=== PATIENT | male | born 1970 | race Caucasian/White ===

== ENCOUNTER 2022-10-22 22:55 | Inpatient (IN) | payer OTHER, SELFPAY ==
[2022-10-22 22:56] VITALS: BP 156/98; PULSE 102; RESP 18; TEMP 36.8; O2SAT 98; BMI 46.2
--- NOTE | 2022-10-22 23:11 | ED.VIS.GI ---
HPI HPI - GI History of Present Illness Chief Complaint: Flank Pain Narrative Narrative: 52-year-old male presenting with left flank pain. He started having this pain early this morning about 6 AM. It was sharp and radiated to the left flank. He states this went away after he took some Aleve. Has been taking Tylenol throughout the day. This pain came back is now 70-8/10. He admits to feeling sweaty as well when the pain comes. He has been vomiting which started this evening. No history of kidney stones. No constipation or diarrhea. No fever, chills. PFSH PFSH Medical History Diabetes Hypertension Non-smoker Home Medications dulaglutide 0.75 mg/0.5 mL subcutaneous pen injector (Trulicity) 0.75 mg subcut QWEEK 10/22/22 [History Last Taken Unknown] losartan 100 mg tablet 100 mg PO DAILY 10/22/22 [History Last Taken Unknown] metformin 500 mg tablet 1,000 mg PO BID 10/22/22 [History Last Taken Unknown] ondansetron 4 mg disintegrating tablet 4 mg PO Q8H PRN nausea and vomiting #14 tabs 10/23/22 [Rx Last Taken Unknown] oxycodone-acetaminophen 5 mg-325 mg tablet (Percocet) 1 tab PO Q6H PRN pain 3 days #12 tabs 10/23/22 [Rx Last Taken Unknown] sulfamethoxazole 800 mg-trimethoprim 160 mg tablet (Bactrim DS) 1 tab PO BID #24 tabs 10/23/22 [Rx Last Taken Unknown] Allergy/AdvReac Type Severity Reaction Status Date / Time No Known Allergies Allergy Verified 01/01/17 05:48 Surgical History History of cholecystectomy History of hip replacement Social History Smoking Status: Never smoker ROS ROS ED Constitutional Constitutional ED: Denies chills or sweats ENT ENT ED: Denies rhinorrhea or sore throat Cardiovascular Cardiovascular: Denies chest pain or palpitations Respiratory/Chest Respiratory/Chest: Denies cough or dyspnea Gastrointestinal Gastrointestinal: Reports abdominal pain, nausea and vomiting; Denies constipation, diarrhea or melena Genitourinary Genitourinary ED: Denies dysuria or hematuria Musculoskeletal Musculoskeletal: Reports back pain Integumentary Denies abscess or Abrasions Neurologic Neurologic: Denies headache(s) or paresthesias Psychiatric Psychiatric: Denies anxiety or depression EXAM Physical Exam Const Vital Signs: 10/22/22 22:56 10/22/22 22:56 10/22/22 23:04 Temperature 98.3 F 98.3 F Temperature Source Oral Oral Pulse Rate 102 H 102 H Respiratory Rate 18 18 Respiratory Effort Normal Respiratory Pattern Normal Blood Pressure 156/98 H 156/98 H Blood Pressure Mean 117 117 Pulse Ox 98 98 Oxygen Delivery Method Room Air Room Air MDM MDM MDM Narrative Medical decision making narrative: Patient medicated with Toradol and Zofran. Basic lab work will be obtained and a CT like study for kidney stone. Patient continued to have pain so he is given morphine 4 mg IV. This did help his pain significantly. CBC shows a leukocytosis of 13.6. Hemoglobin hematocrit are stable. Platelets are normal. Renal function and electrolytes are normal. Patient does have positive nitrites, 500 leukocyte esterase, repeated 100 WBCs with 2+ bacteria and no squamous epithelial cells. Patient was given a dose of Rocephin IV. Urine was sent for culture. CT of the abdomen pelvis shows a left UVJ stone with associated hydronephrosis on the left. Since patient is doing well I will start him on Bactrim, Zofran, Percocet for home. He was given follow-up with Dr. Thompson. Return precautions were discussed. Impression: 1. 7 mm left UVJ stone 2. Pyelonephritis 3. Nausea/Vomiting Lab Data Attestation: I reviewed the patient's lab results. Labs: Laboratory Results - last 24 hr 10/22/22 10/22/22 10/22/22 23:28 23:28 23:59 WBC 13.6 H RBC 5.19 Hgb 15.5 Hct 45.3 MCV 87.3 MCH 29.9 MCHC 34.2 RDW Std Deviation 39.7 RDW Coeff of Brandy 12.5 Plt Count 222 MPV 9.8 Immature Gran % (Auto) 2.300 H Neut % (Auto) 87.3 H Lymph % (Auto) 6.5 L [place] % (Auto) 3.0 Eos % (Auto) 0.4 Baso % (Auto) 0.5 Absolute Neuts (auto) 11.9 H Absolute Lymphs (auto) 0.88 Nucleated RBC % 0.2 Sodium 137 Potassium 4.1 Chloride 103 Carbon Dioxide 29.0 Anion Gap 5 BUN 20 H Creatinine 1.07 Estim Creat Clear Calc 82.59 Est GFR (MDRD) Af Amer 94 Est GFR (MDRD) Non-Af 78 BUN/Creatinine Ratio 18.7 Glucose 135 H Calcium 9.5 Urine Color Yellow Urine Clarity Sl. Cloudy Urine pH 7.0 Ur Specific [place] 1.015 Urine Protein 30 H Urine Glucose (UA) Normal Urine Ketones Negative Urine Occult Blood 250 H Urine Nitrite Positive H Urine Bilirubin Negative Urine Urobilinogen Normal Ur Leukocyte Esterase 500 H Urine RBC 0-5 SEEN Urine WBC 50-100 SEEN Ur Squamous Epith Cells 0 SEEN Urine Bacteria 2+ Urine Mucus 0 SEEN Radiography Diagnostic Testing: Clinical Impression(s) from Imaging Studies Abdomen/Pelvis CT 10/23/22 23:10 IMPRESSION: Mild left hydroureteronephrosis caused by an obstructing calculus at the left UVJ measuring 7 mm. Stranding about the left kidney can be postsurgical or can be seen with infection; correlate clinically. Electronically Signed: Robb Lucas MD at 0:49 EST , Discharge Plan Triage Chief Complaint: Flank Pain ED Provider: Jt Rodriguez Dx/Rx/DC Orders Instructions: ED Kidney Stone w/ Colic, ED Pyelonephritis, Male (Adult) Prescriptions: New oxycodone-acetaminophen [Percocet] 5-325 mg tablet 1 tab PO Q6H PRN (Reason: pain) 3 Days Qty: 12 0RF ondansetron 4 mg tablet,disintegrating 4 mg PO Q8H PRN (Reason: nausea and vomiting) Qty: 14 0RF sulfamethoxazole-trimethoprim [Bactrim DS] 800-160 mg tablet 1 tab PO BID Qty: 24 0RF No Action metformin 500 mg tablet 1,000 mg PO BID losartan 100 mg tablet 100 mg PO DAILY Label Comments: TAKE 1 TABLET BY MOUTH EVERY DAY Trulicity 0.75 mg/0.5 mL pen injector 0.75 mg SUBCUT QWEEK Primary Care Provider: Harinder Gomes Referrals: Bob Thompson MD [Med Staff - Active Staff] - As soon as possible Care Physician,No Primary [Non-Staff] - Disposition Disposition: Home, Self Care
[2022-10-22] MEDS: Ondansetron 4 MG/2 ML Vial IV (23:32)
[2022-10-22] MEDS: Ketorolac 15 MG/ML Vial IV (23:33)
[2022-10-22 23:42] LABS: Absolute Lymphocyte Count 0.88 X10^3/uL (0.83-4.51); Absolute Neutrophil Count 11.9 X10^3/uL (2.0-7.7); Basophil# 0.07 X10^3/uL; Basophil% 0.5 % (0-1); Eosinophil# 0.05 X10^3/uL; Eosinophils% 0.4 % (0-5); Hematocrit 45.3 % (40-54); Hemoglobin 15.5 g/dL (13.0-16.5); Lymphocyte # 0.88 X10^3/ul (0.83-4.51); Lymphocyte % 6.5 % (19-41); Mean Corp Hgb Conc 34.2 g/dL (32-36); Mean Corpuscular Hgb 29.9 pg (27.0-32.0); Mean Corpuscular Volume 87.3 fL (80-94); Mean Platelet Vol. 9.8 fl (6.2-12.0); Monocyte# 0.41 X10^3/uL; NRBC Flagged by Analyzer 0.2 % (0-5); Neutrophil # 11.85 X10^3/uL (2.7-7.7); Neutrophil % 87.3 % (47-70); Platelet Count 222 K/mm3 (150-450); RBC Distribution Width CV 12.5 % (11.6-14.6); RBC Distribution Width SD 39.7 fl (35.1-43.9); Red Blood Count 5.19 M/mm3 (4.6-6.2); White Blood Count 13.6 K/mm3 (4.4-11.0)
[2022-10-23] VITALS (47 sets, daily range): BP systolic 72–190; BP diastolic 36–176; PULSE 94–147; RESP 16–38; TEMP 36.8–40; O2SAT 92–99; BMI 46.2
[2022-10-23] LABS: Anion Gap 5 (5-15); BUN 20 mg/dL (7-18); BUN/Creat Ratio 18.7 RATIO (10-20); Calcium,Total 9.5 mg/dL (8.5-10.1); Chloride 103 mmol/L (98-107); Creatinine, Serum 1.07 mg/dL (0.70-1.30); EST Glomerular Filtration Rate 78 mL/min (>60); Est Glom Filt Rate - Afr Amer 94 mL/min (>60); Estimated Creatinine Clearance 82.59 ml/min; Glucose 135 mg/dL (74-106); Potassium 4.1 mmol/L (3.5-5.1); Sodium Level 137 mmol/L (136-145)
[2022-10-23 00:04] LABS: Mucous, Urine 0 SEEN /hpf (<or=2+); Squamous Epithelial Cells - UA 0 SEEN /hpf (0-5)
[2022-10-23 00:05] LABS: Color, Urine Yellow (Yellow); Glucose, Dipstick Normal (Normal); Ketone-Dipstick Negative (Negative); Leukocyte Esterase-Dipstick 500 /ul (Negative); Nitrite-Dipstick Positive (Negative); Occult Blood-Urine 250 /ul (Negative); Protein-Dipstick 30 mg/dl (Negative); Specific Gravity, Urine 1.015 (1.002-1.030); Urine Bilirubin Dipstick Negative (Negative); Urine Clarity Sl. Cloudy (Clear); Urine Urobilinogen Normal (Normal)
[2022-10-23 00:29] LABS: Bacteria 2+ /hpf (None Seen); Red Blood Cells-Urine 0-5 SEEN /hpf (0-5); White Blood Cells 50-100 SEEN /hpf (0-5)
[2022-10-23] MEDS: Morphine 4 MG/ML Syringe IV ×2 (01:37→02:39)
[2022-10-23] MEDS: Ceftriaxone 1 GM/50 ML BAG IV (01:38)
[2022-10-23] MEDS: oxyCODONE 5 MG Tablet PO (02:26)
--- NOTE | 2022-10-23 03:17 | HP.PCM.HOS_ITS ---
HPI - General General Date of Admission: 10/23/22 Date of Service: 10/23/22 Chief Complaint: left flank pain HPI Narrative RUBIA GRANGER, is a 52 M with a significant history of hypertension and diabetes type 2 who presents to the emergency department with excruciating left flank pain that started the morning of the day of presentation. His pain is episodic. His pain is sharp. The pain is nonradiating. He denies any aggravating or ameliorating factors to the pain. He denies fevers. He reports chills and rigors. At the emergency department he was treated with morphine and Toradol and patient was noted to be shivering thereafter. He could not be discharged home because he had excruciating pain. He reports nausea and vomiting. [facility] Medical History Diabetes Hypertension Non-smoker Home Medications dulaglutide 0.75 mg/0.5 mL subcutaneous pen injector (Trulicity) 0.75 mg subcut QWEEK 10/22/22 [History Last Taken Unknown] losartan 100 mg tablet 100 mg PO DAILY 10/22/22 [History Last Taken Unknown] metformin 500 mg tablet 1,000 mg PO BID 10/22/22 [History Last Taken Unknown] ondansetron 4 mg disintegrating tablet 4 mg PO Q8H PRN nausea and vomiting #14 tabs 10/23/22 [Rx Last Taken Unknown] oxycodone-acetaminophen 5 mg-325 mg tablet (Percocet) 1 tab PO Q6H PRN pain 3 days #12 tabs 10/23/22 [Rx Last Taken Unknown] sulfamethoxazole 800 mg-trimethoprim 160 mg tablet (Bactrim DS) 1 tab PO BID #24 tabs 10/23/22 [Rx Last Taken Unknown] Allergy/AdvReac Type Severity Reaction Status Date / Time No Known Allergies Allergy Verified 01/01/17 05:48 Family History Other Diabetes Hypertension Surgical History History of cholecystectomy History of hip replacement Social History (Updated 10/23/22 @ 03:[address] Kevin Sotelo MD) Smoking Status: Never smoker Smokeless tobacco user: chewing tobacco ROS ROS Narrative Pertinent positives and pertinent negatives as noted in HPI. All other systems were reviewed and are negative Vital Signs Vital Signs Vital Signs: 10/22/22 22:56 10/22/22 22:56 10/22/22 23:04 Temperature 98.3 F 98.3 F Temperature Source Oral Oral Pulse Rate 102 H 102 H Respiratory Rate 18 18 Respiratory Effort Normal Respiratory Pattern Normal Blood Pressure 156/98 H 156/98 H Blood Pressure Mean 117 117 Pulse Ox 98 98 Oxygen Delivery Method Room Air Room Air 10/23/22 02:42 Temperature Temperature Source Pulse Rate 126 H Respiratory Rate 38 H Respiratory Effort Respiratory Pattern Blood Pressure Blood Pressure Mean Pulse Ox 99 Oxygen Delivery Method Room Air Weight Weight: 142.02 kg Body Mass Index (BMI) 46.2 Physical Exam Narrative Physical exam: General: Well-nourished, well-developed. Head: Normocephalic, atraumatic, no tenderness Eyes: Vision is grossly intact. EOMI ENT, no trauma, moist mucous membranes, no rhinorrhea Neck: Nontender, No thyromegaly. CVS: Regular rate and rhythm. S1-S2 present. No murmur, gallop or rub. Respiratory : clear to auscultation bilaterally, chest wall nontender, no wheezing Abdomen: Soft, nontender, nondistended, normal bowel sounds, no masses : Deferred Back: Nontender, no CVA tenderness. Extremities: Nontender full range of motion, no trauma Skin: Normal color, no trauma, abrasions Neuro: Alert, oriented, cranial nerves II through XII grossly intact. Psychiatry: Normal mood. Normal affect. Not depressed. Not anxious. Results Lab / Micro Data Result Diagrams: 10/22/22 23:28 10/22/22 23:28 Labs: Laboratory Results - last 24 hr 10/22/22 23:28: WBC 13.6 H, RBC 5.19, Hgb 15.5, Hct 45.3, MCV 87.3, MCH 29.9, MCHC 34.2, RDW Std Deviation 39.7, RDW Coeff of Brandy 12.5, Plt Count 222, MPV 9.8, Immature Gran % (Auto) 2.300 H, Neut % (Auto) 87.3 H, Lymph % (Auto) 6.5 L, [place] % (Auto) 3.0, Eos % (Auto) 0.4, Baso % (Auto) 0.5, Absolute Neuts (auto) 11.9 H, Absolute Lymphs (auto) 0.88, Nucleated RBC % 0.2 10/22/22 23:28: Sodium 137, Potassium 4.1, Chloride 103, Carbon Dioxide 29.0, Anion Gap 5, BUN 20 H, Creatinine 1.07, Estim Creat Clear Calc 82.59, Est GFR (MDRD) Af Amer 94, Est GFR (MDRD) Non-Af 78, BUN/Creatinine Ratio 18.7, Glucose 135 H, Calcium 9.5 10/22/22 23:59: Urine Color Yellow, Urine Clarity Sl. Cloudy, Urine pH 7.0, Ur Specific [place] 1.015, Urine Protein 30 H, Urine Glucose (UA) Normal, Urine Ketones Negative, Urine Occult Blood 250 H, Urine Nitrite Positive H, Urine B ilirubin Negative, Urine Urobilinogen Normal, Ur Leukocyte Esterase 500 H, Urine RBC 0-5 SEEN, Urine WBC 50-100 SEEN, Ur Squamous Epith Cells 0 SEEN, Urine Bacteria 2+, Urine Mucus 0 SEEN Radiology Impression Abdomen/Pelvis CT 10/23/22 23:10 IMPRESSION: Mild left hydroureteronephrosis caused by an obstructing calculus at the left UVJ measuring 7 mm. Stranding about the left kidney can be postsurgical or can be seen with infection; correlate clinically. Electronically Signed: Robb Lucas MD at 0:49 EST , Assessment & Plan Assessment/Plan (1) Pyelonephritis: (2) Kidney stone: PLAN: Plan Acute pyelonephritis/mild left hydroureteronephrosis/kidney stone Radiologist abdomen and pelvis CT showed: Mild left hydroureteronephrosis caused by an obstructing calculus at the left UVJ measuring 7 mm. Stranding about the left kidney can be postsurgical or can be seen with infection. Actual image was visualized and independently interpreted and I agree with radiologist interpretation. Urinalysis showed urine protein of 30; urine nitrite positive; urine leukocyte esterase of 500; urine bacteria of 2+. CBC showed white count of 13,600; and with bandemia of 2.3%. Neutrophilia of 87.3% and lymphopenia of 6.5%. Ceftriaxone IV ordered. IV Zofran. Urology consult. Diabetes mellitus Patient with hyperglycemia on presentation Home metformin held. Accu-Chek with correction scale insulin ordered. Monitor Accu-Cheks Correction scale insulin ordered. Hypertension Blood pressure is not within goal Home losartan continued. Trend blood pressure and adjust blood pressure medications. DVT prophylaxis : SCDs ordered. Charges/Coding Visit Charges Inpatient E&M: 47091 Init Hosp L3
[2022-10-23] MEDS: Acetaminophen 500 MG Tablet 1000 MG PO (05:06)
[2022-10-23] MEDS: 0.9% Normal Saline 1,000 ML 999 ML IV (05:07)
[2022-10-23 07:30] LABS: Absolute Neutrophil Count 12.4 X10^3/uL (2.0-7.7); Basophil# 0.04 X10^3/uL; Basophil% 0.3 % (0-1); Eosinophil# 0.12 X10^3/uL; Eosinophils% 0.9 % (0-5); Hematocrit 44.2 % (40-54); Lymphocyte % 3.7 % (19-41); Mean Corp Hgb Conc 33.9 g/dL (32-36); Mean Corpuscular Hgb 29.8 pg (27.0-32.0); Mean Corpuscular Volume 87.7 fL (80-94); Mean Platelet Vol. 10.1 fl (6.2-12.0); Monocyte# 0.27 X10^3/uL; NRBC Flagged by Analyzer 0 % (0-5); Neutrophil # 12.42 X10^3/uL (2.7-7.7); Neutrophil % 91.6 % (47-70); POSITIVE DIFFERENTIAL YES; Platelet Count 162 K/mm3 (150-450); RBC Distribution Width CV 12.9 % (11.6-14.6); RBC Distribution Width SD 41.6 fl (35.1-43.9); Red Blood Count 5.04 M/mm3 (4.6-6.2); White Blood Count 13.6 K/mm3 (4.4-11.0)
[2022-10-23] MEDS: 0.9% Normal Saline 1,000 ML 75 ML IV (07:40)
[2022-10-23 07:47] LABS: Anion Gap 11 (5-15); BUN 28 mg/dL (7-18); BUN/Creat Ratio 13.7 RATIO (10-20); Calcium,Total 8.7 mg/dL (8.5-10.1); Chloride 104 mmol/L (98-107); Creatinine, Serum 2.05 mg/dL (0.70-1.30); EST Glomerular Filtration Rate 37 mL/min (>60); Est Glom Filt Rate - Afr Amer 44 mL/min (>60); Estimated Creatinine Clearance 43.11 ml/min; Glucose 160 mg/dL (74-106); Potassium 3.7 mmol/L (3.5-5.1); Sodium Level 136 mmol/L (136-145)
[2022-10-23 07:58] LABS: Differential Indicated SCAN CRITERIA MET
[2022-10-23 08:00] LABS: Bedside Glucose 138 mg/dL (74-106)
--- NOTE | 2022-10-23 08:04 | PCM.CONS.U ---
Assessment & Plan Assessment/Plan (1) Kidney stone: PLAN: left kidney stone, with fevers probably infected plan to place a stent (2) Pyelonephritis: HPI Consult Data Date of Consult: 10/23/22 HPI Narrative Reason for Consultation: kidney stone HPI Narrative: RUBIA GRANGER, is a 52 M who presents with fevers chills and a 7 mm stone in the left ureter. plan for Surgery today with a left stent placement. PFSH Medical History Diabetes Hypertension Non-smoker Home Medications dulaglutide 0.75 mg/0.5 mL subcutaneous pen injector (Trulicity) 0.75 mg subcut TU DIABETES 10/22/22 [History Last Taken Unknown] losartan 100 mg tablet 100 mg PO DAILY 10/22/22 [History Last Taken Unknown] metformin 500 mg tablet 1,000 mg PO BID 10/22/22 [History Last Taken Unknown] ondansetron 4 mg disintegrating tablet 4 mg PO Q8H PRN nausea and vomiting #14 tabs 10/23/22 [Rx Last Taken Unknown] oxycodone-acetaminophen 5 mg-325 mg tablet (Percocet) 1 tab PO Q6H PRN pain 3 days #12 tabs 10/23/22 [Rx Last Taken Unknown] sulfamethoxazole 800 mg-trimethoprim 160 mg tablet (Bactrim DS) 1 tab PO BID #24 tabs 10/23/22 [Rx Last Taken Unknown] Allergy/AdvReac Type Severity Reaction Status Date / Time No Known Allergies Allergy Verified 01/01/17 05:48 Family History Other Diabetes Hypertension Surgical History History of cholecystectomy History of hip replacement Social History Smoking Status: Never smoker Smokeless tobacco user: chewing tobacco ROS Constitutional Constitutional: Denies chills, fever(s) or malaise Eyes Eyes: Denies blurry vision or change in vision ENT HEENT: Reports none Cardiovascular Cardiovascular: Denies chest pain or palpitations Respiratory/Chest Respiratory/Chest: Denies cough or shortness of breath with exertion Gastrointestinal Gastrointestinal: Denies abdominal pain, constipation or diarrhea Musculoskeletal Musculoskeletal: Denies back pain, joint stiffness or joint swelling Integumentary Integumentary: Denies dry skin, jaundice, lesions or rash Neurologic Neurologic: Denies confusion, syncope or weakness Psychiatric Psychiatric: Reports none; Denies anxiety or depression Endocrine Endocrinology: Denies excessive sweating, fatigue or flushing Hematologic/Lymphatic Hematologic/Lymphatic: Denies anemia, easy bleeding or easy bruising Physical Exam Const alert and oriented x3 General Appearance: cooperative HEENT normocephalic, head/scalp atraumatic, EAC's normal and TM's normal bilaterally Eyes PERRL and EOMs intact bilaterally Pupil: sluggish Neck no lymphadenopathy, supple and no JVD General: trachea midline Lymph Lymphatic: no lymphadenopathy noted, lymphedema and lymphadenopathy Resp normal respiratory effort, normal air movement and clear to auscultation bilaterally Cardio regular rate, regular rhythm and peripheral pulses 2+ throughout GI soft to palpation, non-tender and non-distended Extremity normal capillary refill and no clubbing, cyanosis or edema General Extremity: no tenderness to palpation of joints or extremities Skin no rashes or lesions noted General Skin Exam: turgor normal Lesions: no lesions Rashes: no rashes Neuro CN's II-XII intact bilaterally Speech: speech normal Motor Exam: strength 5/5 throughout; Negative for general weakness Psych thought process normal, cooperative and affect normal Appearance: appropriate Lab / Micro Data Result Diagrams: 10/23/22 07:15 10/23/22 07:15 Labs: Laboratory Results - last 24 hr 10/22/22 23:28: WBC 13.6 H, RBC 5.19, Hgb 15.5, Hct 45.3, MCV 87.3, MCH 29.9, MCHC 34.2, RDW Std Deviation 39.7, RDW Coeff of Brandy 12.5, Plt Count 222, MPV 9.8, Immature Gran % (Auto) 2.300 H, Neut % (Auto) 87.3 H, Lymph % (Auto) 6.5 L, [place] % (Auto) 3.0, Eos % (Auto) 0.4, Baso % (Auto) 0.5, Absolute Neuts (auto) 11.9 H, Absolute Lymphs (auto) 0.88, Nucleated RBC % 0.2 10/22/22 23:28: Sodium 137, Potassium 4.1, Chloride 103, Carbon Dioxide 29.0, Anion Gap 5, BUN 20 H, Creatinine 1.07, Estim Creat Clear Calc 82.59, Est GFR (MDRD) Af Amer 94, Est GFR (MDRD) Non-Af 78, BUN/Creatinine Ratio 18.7, Glucose 135 H, Calcium 9.5 10/22/22 23:59: Urine Color Yellow, Urine Clarity Sl. Cloudy, Urine pH 7.0, Ur Specific [place] 1.015, Urine Protein 30 H, Urine Glucose (UA) Normal, Urine Ketones Negative, Urine Occult Blood 250 H, Urine Nitrite Positive H, Urine Bilirubin Negative, Urine Urobilinogen Normal, Ur Leukocyte Esterase 500 H, Urine RBC 0-5 SEEN, Urine WBC 50-100 SEEN, Ur Squamous Epith Cells 0 SEEN, Urine Bacteria 2+, Urine Mucus 0 SEEN 10/23/22 07:15: WBC 13.6 H, RBC 5.04, Hgb 15.0, Hct 44.2, MCV 87.7, MCH 29.8, MCHC 33.9, RDW Std Deviation 41.6, RDW Coeff of Brandy 12.9, Plt Count 162, MPV 10.1, Immature Gran % (Auto) 1.500 H, Neut % (Auto) 91.6 H, Lymph % (Auto) 3.7 L, [place] % (Auto) 2.0, Eos % (Auto) 0.9, Baso % (Auto) 0.3, Absolute Neuts (auto) 12.4 H, Absolute Lymphs (auto) 0.50 L, Nucleated RBC % 0 10/23/22 07:15: Sodium 136, Potassium 3.7, Chloride 104, Carbon Dioxide 21.0, Anion Gap 11, BUN 28 H, Creatinine 2.05 H, Estim Creat Clear Calc 43.11, Est GFR (MDRD) Af Amer 44 L, Est GFR (MDRD) Non-Af 37 L, BUN/Creatinine Ratio 13.7, Glucose 160 H, Calcium 8.7 10/23/22 07:38: POC Glucose 138 H Micro: Microbiology 10/23/22 05:00 Nasal Secretion SARS-CoV-2 & FLU Antigen (Rapid) - Final Radiology Impression Abdomen/Pelvis CT 10/23/22 23:10 IMPRESSION: Mild left hydroureteronephrosis caused by an obstructing calculus at the left UVJ measuring 7 mm. Stranding about the left kidney can be postsurgical or can be seen with infection; correlate clinically. Electronically Signed: Robb Lucas MD at 0:49 EST ,
[2022-10-23] MEDS: Lactated Ringers 1,000 ML 999 ML IV ×3 (11:03→14:44)
--- NOTE | 2022-10-23 12:21 | PCM.OPRPT ---
Report of Operation Date of Procedure: 10/23/22 Pre-Operative Diagnosis: Left obstructing kidney stone and sepsis Post-Operative Diagnosis: Same Surgery/Procedure Performed:: Cystoscopy and left stent placement Description of Surgical Findings:: Patient was taken back to the operating room after induction of general anesthesia, the patient was placed in dorsolithotomy position. The urethra and genitals were prepped and draped in usual sterile fashion. Using a 21 [place] rigid cystourethroscope the entire length of the urethra was normal then went into the bladder. Identified the trigone the left and right ureteral orifice. I then cannulated the Left ureteral orifice and advanced a wire up into the kidney. I then backloaded a 5 [place] open ended catheter over the wire and injected contrast to delineate the anatomy. After the retrograde was performed I then used fluoroscopic images and guidance to advanced a wire up into the kidney and over the 0.038 glidewire I advanced a 6 [place] by 26 cm double pigtail stent. I then pulled the 0.038 Glidewire off and the stent coiled in the kidney bladder good position. The bladder was then drained. We confirmed the position of the stent by fluoroscopy. Patient anesthetic was reversed and was taken back to the PACU in good condition. Surgeon: Bob Thompson Type of Anesthesia: MAC Drains: stent Admit VTE Documentation VTE Present on Admission: No VTE Mechan Device Prophylaxis: SCD's
[2022-10-23 13:21] LABS: Bedside Glucose 130 mg/dL (74-106)
--- NOTE | 2022-10-23 13:48 | SUR.PHASEI ---
PATIENT WOKE FROM ANESTHESIA, WANTING TO GET OUT TO BED, NOT COMBATIVE BUT AGITATED. DIAPHORETIC. HR 130-140s. to bedside. anesthieia and more staff called to bedside to assist with patient's strength. atican given per anesthesia. patient is now resting in bed, vss. at bedside. new iv started in right hand.
--- NOTE | 2022-10-23 14:47 | PCM.PN.BLA ---
Progress Note Called to PACU to see patient post cystoscopy with left stent placement who is tachycardic and hypotensive Patient is in sinus tach, MAP slightly less than 65 He has received about a liter bolus, second liter bolus ongoing He is febrile; urine cultures are pending We will stop losartan, ketorolac Switch to IV Zosyn for now Depending patient's response to fluid boluses, may need ICU versus PCU
[2022-10-23] MEDS: 0.9% Normal Saline 1,000 ML 100 ML IV (17:28)
[2022-10-23] MEDS: Acetaminophen 325 MG Tablet 650 MG PO (19:17)
[2022-10-23] MEDS: 0.9% Saline Lock 10 ML Syringe IV ×2 (19:18→22:07)
[2022-10-23 21:26] LABS: Bedside Glucose 174 mg/dL (74-106)
--- NOTE | 2022-10-23 23:10 | CT_ITS ---
EXAM: CT ABDOMEN AND PELVIS WITHOUT INTRAVENOUS CONTRAST CLINICAL INDICATION: Kidney Stone TECHNIQUE: Helically acquired images were obtained of the abdomen and pelvis without intravenous contrast. CTDIvol = ( 31.58 ) mGy, DLP = ( 1735.61 ) mGycm This CT exam was performed using one or more of the following dose reduction techniques: automated exposure control, adjustment of the mA and/or kV according to patient size, and/or use of iterative reconstruction technique. This report was created using [employer] report generation technology. COMPARISON: 01/01/2017 FINDINGS: LOWER THORAX: Unremarkable. Lung bases are clear. No cardiomegaly. No significant pericardial effusion. ABDOMEN: LIVER: Hepatic steatosis. GALLBLADDER AND BILE DUCTS: Unremarkable. No calcified gallstones. No gallbladder distention or wall edema. No intra- or extrahepatic biliary ductal dilation. PANCREAS: Unremarkable. No focal cystic mass. SPLEEN: Unremarkable. Normal size without focal cystic or solid mass. ADRENALS: Unremarkable. No nodules. KIDNEYS AND URETERS: Mild left hydroureteronephrosis caused by an obstructing calculus at the left UVJ measuring 7 mm. Normal renal size and position. STOMACH AND BOWEL: Distal colonic diverticulosis but no acute diverticulitis. No other inflammatory or obstructive changes otherwise. PELVIS: APPENDIX: Normal appendix. BLADDER: Unremarkable. REPRODUCTIVE: Calcifications of the prostate are nonspecific. ABDOMEN and PELVIS: INTRAPERITONEAL SPACE: No free air. No ascites or other fluid collection. BONES/JOINTS: Right hip arthroplasty with satisfactory alignment and no complications. No acute or healing fracture or malalignment. No suspicious lytic or sclerotic lesions of bone. SOFT TISSUES: Unremarkable. No discrete abdominal or pelvic wall hernia. VASCULATURE: Unremarkable. Abdominal aorta is non-dilated. LYMPH NODES: Unremarkable. No enlarged lymph nodes. CT/Abdomen/Pelvis without Cont IMPRESSION: Mild left hydroureteronephrosis caused by an obstructing calculus at the left UVJ measuring 7 mm. Stranding about the left kidney can be postsurgical or can be seen with infection; correlate clinically. Electronically Signed: Robb Lucas MD at 0:49 EST ,
[2022-10-24] VITALS (23 sets, daily range): BP systolic 89–146; BP diastolic 63–86; PULSE 83–100; RESP 17–33; TEMP 35.9–36.6; O2SAT 96–99
[2022-10-24 00:30] LABS: Bedside Glucose 140 mg/dL (74-106)
[2022-10-24] MEDS: 0.9% Normal Saline 1,000 ML 125 ML IV ×4 (00:42→22:29)
[2022-10-24 05:43] LABS: Hematocrit 39.7 % (40-54); Hemoglobin 13.3 g/dL (13.0-16.5); Mean Corp Hgb Conc 33.5 g/dL (32-36); Mean Corpuscular Hgb 29.8 pg (27.0-32.0); Mean Corpuscular Volume 88.8 fL (80-94); Mean Platelet Vol. 9.8 fl (6.2-12.0); NRBC Flagged by Analyzer 0 % (0-5); POSITIVE DIFFERENTIAL YES; POSITIVE MORPHOLOGY YES; Platelet Count 112 K/mm3 (150-450); RBC Distribution Width CV 13.6 % (11.6-14.6); RBC Distribution Width SD 44.2 fl (35.1-43.9); Red Blood Count 4.47 M/mm3 (4.6-6.2); White Blood Count 26.9 K/mm3 (4.4-11.0)
[2022-10-24 05:46] LABS: Differential Indicated SCAN CRITERIA MET
[2022-10-24 06:02] LABS: Scan Smear per Review Criteria MANUAL DIFF
[2022-10-24 06:05] LABS: Eosinophil 1 % (0-5); Lymphocyte 4 % (19-41); Metamyelocyte 14 % (0-1); Monocyte 7 % (0-10); Neutrophil-Band 11 % (0-5); Neutrophil-Segmented 63 % (47-70); Total Cells Counted 100 (MANUAL DIFF)
[2022-10-24 06:08] LABS: ALB/GLOB Ratio 0.7 RATIO (0.9-2.4); AST(SGOT) 72 U/L (15-37); Absolute Lymphocyte Count 1.08 X10^3/uL (0.83-4.51); Absolute Neutrophil Count 23.7 X10^3/uL (2.0-7.7); Alanine Aminotransfer ALT/SGPT 134 U/L (16-61); Albumin, Serum 2.6 g/dL (3.2-5.0); Alkaline Phosphatase 106 U/L (45-117); Anion Gap 8 (5-15); BUN 37 mg/dL (7-18); Calcium,Total 8.2 mg/dL (8.5-10.1); Chloride 107 mmol/L (98-107); Creatinine, Serum 1.61 mg/dL (0.70-1.30); EST Glomerular Filtration Rate 49 mL/min (>60); Est Glom Filt Rate - Afr Amer 59 mL/min (>60); Estimated Creatinine Clearance 54.89 ml/min; Globulin 3.5 g/dL (2.2-4.2); Glucose 122 mg/dL (74-106); Lymphocyte # 1.08 X10^3/ul (0.83-4.51); Neutrophil # 23.66 X10^3/uL (2.7-7.7); Potassium 3.4 mmol/L (3.5-5.1); Protein, Total 6.1 g/dL (6.4-8.2); Sodium Level 138 mmol/L (136-145)
[2022-10-24 06:10] LABS: Platelet Estimate SLT DEC (ADEQ); Red Cell Morphology NORM C+C NORMAL (NORM C&C)
[2022-10-24 06:25] LABS: Bedside Glucose 110 mg/dL (74-106)
[2022-10-24] MEDS: Acetaminophen 325 MG Tablet 650 MG PO ×2 (06:32→17:38)
--- NOTE | 2022-10-24 06:52 | CON.PCM.CC_ITS ---
Assessment & Plan Assessment/Plan (1) Pyelonephritis: (2) Acute kidney injury: PLAN: Plan RECOMMENDATIONS: 1. Continue antibiotics pending cultures 2. Increase activity as tolerated 3. Consider discontinuation of Copeland catheter 4. Hemodynamically stable on room air. Will sign off from a critical care perspective IMPRESSIONS: 1. Pyelonephritis/acute kidney injury secondary to hydronephrosis secondary to obstructive renal colliculi Patient with significant elevation of creatinine on presentation. Patient has not had any positive cultures, but clinical suspicion for gram-negative sepsis is appropriate. Patient has received antibiotics. Patient does have a significant leukocytosis, but this would be expected. Patient did not have any significant hypotension overnight. Would hold antihypertensives for 24 hours. Patient appears to have adequate pain control. 2. Diabetes mellitus type 2/hypertension/morbid obesity Complicates care, management, recovery and prognosis. We will need to watch blood sugars closely given acute process. Hold losartan given acute kidney injury for least 24 hours. HPI Consult Data Date of Consult: 10/24/22 HPI Narrative Reason for Consultation: Sepsis HPI Narrative: RUBIA GRANGER is a 52 M, with past medical history listed below, who presents to [facility] on 10/22/2022 secondary to acute onset of left-sided flank pain. Patient had reported onset earlier in the day and described it as sharp with radiation to the left flank. Patient had attempted to take Aleve and Tylenol through the day, but was still reporting pain levels of 7-8 out of 10. Patient did report diaphoresis and vomiting. Patient had no history of previous kidney stone. Patient had not reported any subjective fevers or chills. Patient does carry a diagnosis of diabetes, but states he is relatively controlled. In the ER, patient was afebrile, but tachycardic at 102 bpm. Patient was hypertensive but saturating well on room air. Laboratory work-up showed a white blood cell count of 13.6 with hemoglobin of 15.5 and a creatinine of 1.07. Urinalysis was suggestive of a urinary tract infection. CT of the abdomen and pelvis was obtained showing mild left hydronephrosis with an obstructing 7 mm stone and stranding. Patient was given IV Rocephin and evaluated by Dr. Thompson. Patient was taken to the OR and had a stent placed. Patient was placed on the floor for further evaluation. In PACU, patient started to have some soft pressures postoperatively. Given concerns for gram-negative sepsis, patient was admitted to the intensive care unit overnight for monitoring Since being in the intensive care unit, patient has done well. Patient is still reporting intermittent left flank pain, but states this is much improved. Patient states the pain is exacerbated by urination. Patient has had some mild hematuria. Patient is not reporting any nausea or vomiting. Patient does state that he feels well enough to go home. Review of systems otherwise negative from a constitutional, HEENT, respiratory, cardiovascular, GI, genitourinary, musculoskeletal, skin, neurologic, psychiatric and hematologic system unless stated above. PFSH Medical History Diabetes Hypertension Non-smoker Home Medications dulaglutide 0.75 mg/0.5 mL subcutaneous pen injector (Trulicity) 0.75 mg subcut TU DIABETES 10/22/22 [History Last Taken Unknown] losartan 100 mg tablet 100 mg PO DAILY 10/22/22 [History Last Taken Unknown] metformin 500 mg tablet 1,000 mg PO BID 10/22/22 [History Last Taken Unknown] ondansetron 4 mg disintegrating tablet 4 mg PO Q8H PRN nausea and vomiting #14 tabs 10/23/22 [Rx Last Taken Unknown] oxycodone-acetaminophen 5 mg-325 mg tablet (Percocet) 1 tab PO Q6H PRN pain 3 days #12 tabs 10/23/22 [Rx Last Taken Unknown] sulfamethoxazole 800 mg-trimethoprim 160 mg tablet (Bactrim DS) 1 tab PO BID #24 tabs 10/23/22 [Rx Last Taken Unknown] Allergy/AdvReac Type Severity Reaction Status Date / Time No Known Allergies Allergy Verified 10/23/22 10:41 Family History Other Diabetes Hypertension Surgical History History of cholecystectomy History of hip replacement Social History Smoking Status: Never smoker Smokeless tobacco user: chewing tobacco Physical Exam Const alert and oriented x3 General Appearance: cooperative and comfortable Nutritional Appearance: obese centrally obese HEENT normocephalic, head/scalp atraumatic, EAC's normal and TM's normal bilaterally Eyes PERRL, EOMs intact bilaterally, conjunctivae normal and no scleral icterus Neck no lymphadenopathy, supple and no JVD General: trachea midline Lymph Lymphatic: no lymphadenopathy noted, lymphedema and lymphadenopathy Resp normal respiratory effort, normal air movement and clear to auscultation bilaterally Auscultation: Negative for rales, rhonchi or wheezes Cardio regular rate, regular rhythm, S1 normal heart sound, S2 normal heart sound, no murmurs, no rub and no gallops GI soft to palpation, non-tender and non-distended Extremity normal capillary refill and no clubbing, cyanosis or edema Skin no rashes or lesions noted General Skin Exam: turgor normal Lesions: no lesions Rashes: no rashes Neuro oriented x3, CN's II-XII intact bilaterally and moves all extremities Speech: speech normal Psych thought process normal, cooperative and affect normal Appearance: appropriate Lab / Micro Data Attestation: I reviewed the patient's lab results. Result Diagrams: 10/24/22 05:25 10/24/22 05:25 Labs: Laboratory Results - last 24 hr 10/23/22 07:15: WBC 13.6 H, RBC 5.04, Hgb 15.0, Hct 44.2, MCV 87.7, MCH 29.8, MCHC 33.9, RDW Std Deviation 41.6, RDW Coeff of Brandy 12.9, Plt Count 162, MPV 10.1, Immature Gran % (Auto) 1.500 H, Neut % (Auto) 91.6 H, Lymph % (Auto) 3.7 L , [place] % (Auto) 2.0, Eos % (Auto) 0.9, Baso % (Auto) 0.3, Absolute Neuts (auto) 12.4 H, Absolute Lymphs (auto) 0.50 L, Nucleated RBC % 0, Differential Comment COMMENT 10/23/22 07:15: Sodium 136, Potassium 3.7, Chloride 104, Carbon Dioxide 21.0, Anion Gap 11, BUN 28 H, Creatinine 2.05 H, Estim Creat Clear Calc 43.11, Est GFR (MDRD) Af Amer 44 L, Est GFR (MDRD) Non-Af 37 L, BUN/Creatinine Ratio 13.7, Glucose 160 H, Calcium 8.7 10/23/22 07:38: POC Glucose 138 H 10/23/22 12:54: POC Glucose 130 H 10/23/22 21:05: POC Glucose 174 H 10/24/22 00:00: POC Glucose 140 H 10/24/22 05:25: Sodium 138, Potassium 3.4 L, Chloride 107, Carbon Dioxide 23.0, Anion Gap 8, BUN 37 H, Creatinine 1.61 H, Estim Creat Clear Calc 54.89, Est GFR (MDRD) Af Amer 59 L, Est GFR (MDRD) Non-Af 49 L, BUN/Creatinine Ratio 23.0 H, Glucose 122 H, Calcium 8.2 L, Total Bilirubin 0.90, AST 72 H, ALT 134 H, Alkaline Phosphatase 106, Total Protein 6.1 L, Albumin 2.6 L, Globulin 3.5, Albumin/Globulin Ratio 0.7 L 10/24/22 05:25: WBC 26.9 H, RBC 4.47 L, Hgb 13.3, Hct 39.7 L, MCV 88.8, MCH 29.8, MCHC 33.5, RDW Std Deviation 44.2 H, RDW Coeff of Brandy 13.6, Plt Count 112 L, MPV 9.8, Immature Gran % (Auto) SKIN THERAPIST, Neut % (Auto) SKIN THERAPIST, Lymph % (Auto) SKIN THERAPIST, [place] % (Auto) SKIN THERAPIST, Eos % (Auto) SKIN THERAPIST, Baso % (Auto) SKIN THERAPIST, Absolute Neuts (auto) 23.7 H, Absolute Lymphs (auto) 1.08, Total Counted 100, Neutrophils % (Manual) 63, Band Neutrophils % 11 H, Lymphocytes % (Manual) 4 L, Monocytes % (Manual) 7, Eosinophils % (Manual) 1, Metamyelocytes % 14 H, Nucleated RBC % 0, Diff Path Review May gerda, Platelet Estimate SLT DEC, RBC Morphology NORM C+C 10/24/22 05:57: POC Glucose 110 H Micro: Microbiology 10/23/22 05:00 Nasal Secretion SARS-CoV-2 & FLU Antigen (Rapid) - Final Charges/Coding Visit Charges Inpatient E&M: 10816 Init Hosp L2
--- NOTE | 2022-10-24 07:12 | PN.HOSP_ITS ---
Subjective Subjective Follow-up on acute infected left kidney stone/pyelonephritis: Patient was seen and examined. Overnight, he complained of left flank pain especially when he urinated. He stated that this improved with time. He was hypotensive and tachycardic overnight, managed with no acute events in ICU. He did not require IV pressors. Today, he denied any dizziness or chest pain or palpitations. Objective Data Objective Data Vital Signs: Vital Signs Temp Pulse Resp BP Pulse Ox O2 Del Method O2 Flow Rate 96.9 F L 95 20 H 116/78 99 Room Air 2 10/24/22 05:59 10/24/22 07:00 10/24/22 05:59 10/24/22 07:00 10/24/22 07:00 10/24/22 07:00 10/24/22 00:04 Oxygen Flow Rate (L/min) 2 Oxygen Delivery Method Room Air Weight: 141.5 kg Body Mass Index (BMI) 46.2 Intake & Output: Intake and Output for Last 24 Hours 10/22/22 10/23/22 10/24/22 23:59 23:59 23:59 Intake Total 5123.33 / 5123.33 1025 / 1025 Output Total 300 / 300 1850 / 1850 Balance 4823.33 / 4823.33 -825 / -825 Lab / Micro Data Result Diagrams: 10/24/22 05:25 10/24/22 05:25 Labs: Laboratory Results - last 24 hr 10/23/22 07:15: WBC 13.6 H, RBC 5.04, Hgb 15.0, Hct 44.2, MCV 87.7, MCH 29.8, MCHC 33.9, RDW Std Deviation 41.6, RDW Coeff of Brandy 12.9, Plt Count 162, MPV 10.1, Immature Gran % (Auto) 1.500 H, Neut % (Auto) 91.6 H, Lymph % (Auto) 3.7 L , [place] % (Auto) 2.0, Eos % (Auto) 0.9, Baso % (Auto) 0.3, Absolute Neuts (auto) 12.4 H, Absolute Lymphs (auto) 0.50 L, Nucleated RBC % 0, Differential Comment COMMENT 10/23/22 07:15: Sodium 136, Potassium 3.7, Chloride 104, Carbon Dioxide 21.0, Anion Gap 11, BUN 28 H, Creatinine 2.05 H, Estim Creat Clear Calc 43.11, Est GFR (MDRD) Af Amer 44 L, Est GFR (MDRD) Non-Af 37 L, BUN/Creatinine Ratio 13.7, Glucose 160 H, Calcium 8.7 10/23/22 07:38: POC Glucose 138 H 10/23/22 12:54: POC Glucose 130 H 10/23/22 21:05: POC Glucose 174 H 10/24/22 00:00: POC Glucose 140 H 10/24/22 05:25: Sodium 138, Potassium 3.4 L, Chloride 107, Carbon Dioxide 23.0, Anion Gap 8, BUN 37 H, Creatinine 1.61 H, Estim Creat Clear Calc 54.89, Est GFR (MDRD) Af Amer 59 L, Est GFR (MDRD) Non-Af 49 L, BUN/Creatinine Ratio 23.0 H, Glucose 122 H, Calcium 8.2 L, Total Bilirubin 0.90, AST 72 H, ALT 134 H, Alkaline Phosphatase 106, Total Protein 6.1 L, Albumin 2.6 L, Globulin 3.5, Albumin/Globulin Ratio 0.7 L 10/24/22 05:25: WBC 26.9 H, RBC 4.47 L, Hgb 13.3, Hct 39.7 L, MCV 88.8, MCH 29.8, MCHC 33.5, RDW Std Deviation 44.2 H, RDW Coeff of Brandy 13.6, Plt Count 112 L, MPV 9.8, Immature Gran % (Auto) STEM CLEANING MACHINE FEEDER, Neut % (Auto) STEM CLEANING MACHINE FEEDER, Lymph % (Auto) STEM CLEANING MACHINE FEEDER, [place] % (Auto) STEM CLEANING MACHINE FEEDER, Eos % (Auto) STEM CLEANING MACHINE FEEDER, Baso % (Auto) STEM CLEANING MACHINE FEEDER, Absolute Neuts (auto) 23.7 H, Absolute Lymphs (auto) 1.08, Total Counted 100, Neutrophils % (Manual) 63, Band Neutrophils % 11 H, Lymphocytes % (Manual) 4 L, Monocytes % (Manual) 7, Eosinophils % (Manual) 1, Metamyelocytes % 14 H, Nucleated RBC % 0, Diff Path Review May foll, Platelet Estimate SLT DEC, RBC Morphology NORM C+C 10/24/22 05:57: POC Glucose 110 H Micro: Microbiology 10/23/22 05:00 Nasal Secretion SARS-CoV-2 & FLU Antigen (Rapid) - Final Physical Exam Narrative Physical exam: General: Alert, Oriented x3, Cooperative, morbidly obese, on room air HEENT: Atraumatic Oral: Moist Mucosa Neck: Supple Lungs: Diminished to auscultation Cardiovascular: HS I+II, regular, no murmurs Abdomen: Bowel Sounds Present, Soft, Non Tender, no bilateral flank tenderness Extremities: No edema Skin: No rashes, No breakdown Neurological: Grossly intact Psych/Mental Status: Appropriate Assessment & Plan Assessment/Plan (1) Acute kidney injury: (2) Kidney stone: (3) Pyelonephritis: PLAN: Plan 1. Severe sepsis/septic shock secondary to acute pyelonephritis/left infected stone Seen on CT of the abdomen and pelvis. Patient was tachycardic, slightly hypotensive, improved with IV fluids, managed in ICU WBC count remains elevated at 26.9 with bandemia Patient did not require pressors. Blood pressures are much improved today Will continue on IV fluids, IV Zosyn Follow-up on urine cultures 2. Acute UVJ obstructing stone with hydroureteronephrosis, status post cystoscopy with left ureteral stent placement on 10/23/22 Urology following, stent removal planned in the outpatient 3. KATTY, probably mixed, prerenal and postrenal, secondary to #1 and 2 Creatinine yesterday was 2.05, improved to 1.61 Continue to hold losartan and metformin Continue IV fluids, continue to trend 4. Hypokalemia, K 3.4, replace, recheck in a.m. 5. Thrombocytopenia, drop in platelets from 162 to 112. Likely effect of Zosyn as patient is not any heparin products Will trend 6. Type II DM, on metformin and Trulicity, will hold these, continue with blood glucose checks with insulin sliding scale 7. Hypertension, blood pressure remains relatively low now, Continue to hold losartan; will re-evaluate 8. DVT PPx - SCDs and early ambulation Charges/Coding Visit Charges Inpatient E&M: 04703 Subs Hosp L3
[2022-10-24] MEDS: Potassium Chloride Oral Tablet 20 MEQ 60 MEQ PO (10:09)
--- NOTE | 2022-10-24 10:30 | CASEMGMT ---
JUAN NGUYEN Assessment: Face to Face with pt for initial transition planning/care coordination assessment. RN PATRICK introduced self and role at [facility], pt voices understanding and consents to assessment. Pt up in chair with sitting beside. Appears to be in no distress. Pt is A/O x4 and answers all questions appropriately at this time. Care providers, pharmacy, and demographics verified/updated. Admitting Dx: Acute Pyelonephritis. PCP: Harinder Gomes. Specialists: None. Preferred [facility]acy: [facility]. Insurance: [employer]. Prescription Benefit: Yes. LW/HPOA: Pt denies having a LW/HPOA. Advised SW can assist if interested. Declined at this time. LNOK: - Meg Galindo. Living Arrangements: Pt lives . Pt has three children in college who come home to visit. No concerns of navigating steps reports. Pt is I in ADL's at home. Transportation: Pt drives self and denies concerns with transportation. DME/HHC/SNF: Pt denied any DME at home. Pt had HHC through [facility] after a PICC line procedure. pt denied any SNF stays. Pt states no concerns with going home at time of dc. Pt states no further concerns/needs. CM to follow. Advised pt to ask CM if any further question/concerns/needs arise, voices understanding. Pt Goal: Home. No needs. Plan: TBD. ?
[2022-10-24 12:25] LABS: Bedside Glucose 145 mg/dL (74-106)
[2022-10-24 13:54] LABS: Pathologist Review Reviewed
[2022-10-24] MEDS: Insulin Lispro 100 UNIT/ML INSULN.PEN SC (17:35)
[2022-10-24 17:51] LABS: Bedside Glucose 163 mg/dL (74-106)
[2022-10-24 19:56] LABS: Bedside Glucose 132 mg/dL (74-106)
[2022-10-25] MEDS: Acetaminophen 325 MG Tablet 650 MG PO ×2 (01:14→07:53)
[2022-10-25 02:00] VITALS: BP 143/88; PULSE 92; RESP 18; TEMP 36.6; O2SAT 97
[2022-10-25 03:08] VITALS: PULSE 96
[2022-10-25 03:32] LABS: Mean Corp Hgb Conc 33.3 g/dL (32-36); Mean Corpuscular Hgb 29.7 pg (27.0-32.0); Mean Platelet Vol. 10.5 fl (6.2-12.0); POSITIVE COUNT YES; POSITIVE MORPHOLOGY YES; Platelet Count 106 K/mm3 (150-450); RBC Distribution Width CV 13.2 % (11.6-14.6); RBC Distribution Width SD 43.8 fl (35.1-43.9); Red Blood Count 4.38 M/mm3 (4.6-6.2)
[2022-10-25 03:33] LABS: Differential Indicated MANUAL DIFF
[2022-10-25 03:45] LABS: ALB/GLOB Ratio 0.7 RATIO (0.9-2.4); AST(SGOT) 51 U/L (15-37); Alanine Aminotransfer ALT/SGPT 109 U/L (16-61); Albumin, Serum 2.5 g/dL (3.2-5.0); Alkaline Phosphatase 110 U/L (45-117); Anion Gap 6 (5-15); BUN 23 mg/dL (7-18); BUN/Creat Ratio 22.3 RATIO (10-20); Calcium,Total 8.1 mg/dL (8.5-10.1); Chloride 110 mmol/L (98-107); Creatinine, Serum 1.03 mg/dL (0.70-1.30); EST Glomerular Filtration Rate 81 mL/min (>60); Est Glom Filt Rate - Afr Amer 98 mL/min (>60); Globulin 3.6 g/dL (2.2-4.2); Glucose 144 mg/dL (74-106); Potassium 4.2 mmol/L (3.5-5.1); Protein, Total 6.1 g/dL (6.4-8.2); Sodium Level 140 mmol/L (136-145)
[2022-10-25 03:53] LABS: Basophil 1 % (0-1); Lymphocyte 14 % (19-41); Metamyelocyte 3 % (0-1); Monocyte 7 % (0-10); Neutrophil-Band 6 % (0-5); Neutrophil-Segmented 69 % (47-70); Total Cells Counted 100 (MANUAL DIFF)
[2022-10-25 03:56] LABS: Absolute Lymphocyte Count 2.52 X10^3/uL (0.83-4.51); Lymphocyte # 2.52 X10^3/ul (0.83-4.51); Neutrophil # 14.05 X10^3/uL (2.7-7.7)
[2022-10-25 03:58] LABS: Platelet Estimate SLT DEC (ADEQ); Red Cell Morphology NORM C+C NORMAL (NORM C&C)
[2022-10-25 06:55] LABS: Bedside Glucose 146 mg/dL (74-106)
[2022-10-25] MEDS: 0.9% Normal Saline 1,000 ML 125 ML IV (07:20)
[2022-10-25 08:00] VITALS: PULSE 91
[2022-10-25 08:15] VITALS: BP 133/87; PULSE 95; RESP 21; TEMP 36.4; O2SAT 98
--- NOTE | 2022-10-25 12:01 | PCM.DC ---
Discharge Instructions Diet Discharge Diet: Low fat / Low cholesterol, 1800 Calorie Control Diet and 2000 mg Sodium Diet Activity Discharge Activity: Return to Normal Activity Weight Bearing Status: Weight bearing as tolerated Follow Up Care Test Results: Test results from this visit will be discussed in further detail at your follow-up appointment, if applicable. Discharge Plan Admission Admit Date/Time: 10/23/22 03:07 Primary Reason for Your Visit: Acute pyelonephritis Attending Provider: Liudmila Au Primary Care Provider: Harinder Gomes Consulting Providers: Kevin oStelo ; Bob Thompson ; Lex Garzon ; Yogi Brush ; Jadon Winslow ; Black Higuera ; Kathy Tony CONSTRUCTION EQUIPMENT MECHANIC HELPER Instructions Additional Instructions / Restrictions: Complete your antibiotics. Follow-up with Dr. Thompson within 2 weeks Follow-up with your primary care doctor within 1 week Discharge Orders/Prescriptions Prescriptions: New oxycodone-acetaminophen [Percocet] 5-325 mg tablet 1 tab PO Q6H PRN (Reason: pain) 3 Days Qty: 12 0RF ondansetron 4 mg tablet,disintegrating 4 mg PO Q8H PRN (Reason: nausea and vomiting) Qty: 14 0RF sulfamethoxazole-trimethoprim [Bactrim DS] 800-160 mg tablet 1 tab PO BID Qty: 24 0RF cefdinir 300 mg capsule 300 mg PO BID 5 Days Qty: 10 0RF Continued metformin 500 mg tablet 1,000 mg PO BID Trulicity 0.75 mg/0.5 mL pen injector 0.75 mg SUBCUT TU No Action losartan 100 mg tablet 100 mg PO DAILY Label Comments: TAKE 1 TABLET BY MOUTH EVERY DAY Referrals / Follow Up: Bob Thompson MD [Med Staff - Active Staff] - As soon as possible Harinder Gomes MD [Primary Care Provider] - In 1 Week Care Physician,No Primary [Non-Staff] - Disposition Disposition (needs filled in before D/C Order can be placed): Home, Self Care
--- NOTE | 2022-10-25 12:02 | PCM.DC.SUM ---
Providers Date of Admission: 10/23/22 Date of Discharge: 10/25/22 Primary Care Physician: Dr. Harinder Gomes MD Consultations 10/23/22 05:04 Consult: General Surgery Routine Consulting Provider: Bob Thompson Reason for Consult: Mild left hydroureteronephrosis; obstructing calculus EMERGENT Consult: No Notified: Yes Date Notified: 10/23/22 Time Notified: 03:38 Method of Notification: Verbal 10/23/22 17:38 Consult: State Wildlife Officer / Pulmonary Medicine Routine Consulting Provider: Pulmonary Medicine [facility] Reason for Consult: Septic shock EMERGENT Consult: No Notified: Yes Date Notified: 10/23/22 Time Notified: 17:38 Method of Notification: Verbal Reason For Visit: ACUTE PYELONEPHRITIS Diagnosis Discharge Diagnosis (1) Acute kidney injury: Status: Acute Code(s): N17.9 - Acute kidney failure, unspecified (2) Kidney stone: Status: Acute Code(s): N20.0 - Calculus of kidney (3) Pyelonephritis: Status: Acute Code(s): N12 - Tubulo-interstitial nephritis, not specified as acute or chronic Plan 1. Severe sepsis/septic shock secondary to acute pyelonephritis/left infected stone 2. Acute UVJ obstructing stone with hydroureteronephrosis, status post cystoscopy with left ureteral stent placement on 10/23/22 3. KATTY, probably mixed, prerenal and postrenal 4. Hypokalemia 5. Thrombocytopenia 6. Type II DM 7. Hypertension Medications at Discharge Home Medications dulaglutide 0.75 mg/0.5 mL subcutaneous pen injector (Trulicity) 0.75 mg subcut TU DIABETES 10/22/22 losartan 100 mg tablet 100 mg PO DAILY 10/22/22 metformin 500 mg tablet 1,000 mg PO BID 10/22/22 ondansetron 4 mg disintegrating tablet 4 mg PO Q8H PRN nausea and vomiting #14 tabs 10/23/22 oxycodone-acetaminophen 5 mg-325 mg tablet (Percocet) 1 tab PO Q6H PRN pain 3 days #12 tabs 10/23/22 sulfamethoxazole 800 mg-trimethoprim 160 mg tablet (Bactrim DS) 1 tab PO BID #24 tabs 10/23/22 cefdinir 300 mg capsule 300 mg PO BID 5 days #10 caps 10/25/22 Hospital Course Operations None Procedures - (Cystoscopy with left ureteral stent placement 10/23/22) Summary of Care Provided Minutes Spent on Discharge: 35 Hospital Course: 52 y/o male with obesity, type II DM who presented with excruciating left flank pain that started on the day of presentation. Pain was sharp, nonradiating. CT of the abdomen pelvis showed left pyelonephritis with obstructing calculus at the left UVJ measuring 7mm. He initially was started on IV ceftriaxone in the emergency room. He was taken to the OR for cystoscopy and left stent placement. Postprocedure, patient was febrile, tachycardic, hypotensive. He did receive sedating medication including Ativan with anesthesia. Patient was persistently tachycardic and hypotensive despite IV fluids. He was transferred to ICU for closer monitoring. His IV ceftriaxone was changed to IV Zosyn. His blood pressure stabilized overnight. Urine cultures grew Klebsiella pneumonia. Patient was discharged on 5 more days of oral cefdinir, making a total of 7 days antibiotics. He was discharged off losartan. He will need to see his primary care doctor within 1 week. He will also follow-up with urology within a week for left stent removal. Physical Exam Narrative Physical exam: General: Alert, Oriented x3, Cooperative, morbidly obese, on room air HEENT: Atraumatic Oral: Moist Mucosa Neck: Supple Lungs: Diminished to auscultation Cardiovascular: HS I+II, regular, no murmurs Abdomen: Bowel Sounds Present, Soft, Non Tender, no bilateral flank tenderness Extremities: No edema Skin: No rashes, No breakdown Neurological: Grossly intact Psych/Mental Status: Appropriate Weight / BMI Weight Weight: 141.8 kg Body Mass Index (BMI) 46.2 ABG / Lab / Microbiology Data Result Diagrams: 10/25/22 03:00 10/25/22 03:00 Laboratory: Laboratory Results - last 24 hr 10/24/22 05:25: Diff Path Review Reviewed 10/24/22 12:04: POC Glucose 145 H 10/24/22 17:31: POC Glucose 163 H 10/24/22 19:35: POC Glucose 132 H 10/25/22 03:00: Sodium 140, Potassium 4.2, Chloride 110 H, Carbon Dioxide 24.0, Anion Gap 6, BUN 23 H, Creatinine 1.03, Estim Creat Clear Calc 85.80, Est GFR (MDRD) Af Amer 98, Est GFR (MDRD) Non-Af 81, BUN/Creatinine Ratio 22.3 H, Glucose 144 H, Calcium 8.1 L, Total Bilirubin 0.50, AST 51 H, ALT 109 H, Alkaline Phosphatase 110, Total Protein 6.1 L, Albumin 2.5 L, Globulin 3.6, Albumin/Globulin Ratio 0.7 L 10/25/22 03:00: WBC 18.0 H, RBC 4.38 L, Hgb 13.0, Hct 39.0 L, MCV 89.0, MCH 29.7, MCHC 33.3, RDW Std Deviation 43.8, RDW Coeff of Brandy 13.2, Plt Count 106 L, MPV 10.5, Neut % (Auto) Not Reportable, Absolute Neuts (auto) 14.0 H, Absolute Lymphs (auto) 2.52, Total Counted 100, Neutrophils % (Manual) 69, Band Neutrophils % 6 H, Lymphocytes % (Manual) 14 L, Monocytes % (Manual) 7, Basophils % (Manual) 1, Metamyelocytes % 3 H, Diff Path Review March foll, Platelet Estimate SLT DEC, RBC Morphology NORM C+C 10/25/22 06:27: POC Glucose 146 H Microbiology: Microbiology 10/23/22 23:59 Urine, Clean Catch Urine Culture - Final Klebsiella pneumoniae sp pneum 10/23/22 05:00 Nasal Secretion SARS-CoV-2 & FLU Antigen (Rapid) - Final D/C Instructions Discharge Diet: Low fat / Low cholesterol, 1800 Calorie Control Diet and 2000 mg Sodium Diet Weight Bearing Status: Weight bearing as tolerated Meaningful Use Info Meaningful Use Diagnoses (Choose all that apply): None applicable Discharge Plan Admission Admit Date/Time: 10/23/22 03:07 Primary Reason for Your Visit: Acute pyelonephritis Attending Provider: Liudmila Au Primary Care Provider: Harinder Gomes Consulting Providers: Kevin Sotelo ; Bob Thompson ; Lex Garzon ; Yogi Brush ; Jadon Winslow ; Black Higuera ; Kathy Tony FORM BLOCK MAKER Instructions Additional Instructions / Restrictions: Complete your antibiotics. Follow-up with Dr. Thompson within 2 weeks Follow-up with your primary care doctor within 1 week Discharge Orders/Prescriptions Prescriptions: New oxycodone-acetaminophen [Percocet] 5-325 mg tablet 1 tab PO Q6H PRN (Reason: pain) 3 Days Qty: 12 0RF ondansetron 4 mg tablet,disintegrating 4 mg PO Q8H PRN (Reason: nausea and vomiting) Qty: 14 0RF sulfamethoxazole-trimethoprim [Bactrim DS] 800-160 mg tablet 1 tab PO BID Qty: 24 0RF cefdinir 300 mg capsule 300 mg PO BID 5 Days Qty: 10 0RF Continued metformin 500 mg tablet 1,000 mg PO BID Trulicity 0.75 mg/0.5 mL pen injector 0.75 mg SUBCUT TU No Action losartan 100 mg tablet 100 mg PO DAILY Label Comments: TAKE 1 TABLET BY MOUTH EVERY DAY Referrals / Follow Up: Bob Thompson MD [Med Staff - Active Staff] - As soon as possible Harinder Gomes MD [Primary Care Provider] - In 1 Week Care Physician,No Primary [Non-Staff] - Disposition Disposition (needs filled in before D/C Order can be placed): Home, Self Care
[2022-10-25 12:30] LABS: Bedside Glucose 116 mg/dL (74-106)
[2022-10-25 15:34] LABS: Pathologist Review Reviewed
== END 2022-10-25 12:50 | disposition home or self-care (01) | DRG 853 ==
LOC: ED 10-23 02:03 → MS3 10-23 04:43 → ICU 10-23 16:22
PROVIDERS: Internal Medicine Critical Care Medicine; Urology; Admitting Provider Hospitalist; Emergency Provider Student in an Organized Health Care Education/Training Program; PCP Family Medicine; Visit Provider Internal Medicine
PROC: 0T748DZ Dilation of Left Kidney Pelvis with Intraluminal Device, Via Natural or Artificial Opening Endoscopic (ICD-10-PCS; CPT 52332; principal; 2022-10-23 11:35)
DX: A41.9 Sepsis, unspecified organism (principal); R65.21 Severe sepsis with septic shock; N12 Tubulo-interstitial nephritis, not specified as acute or chronic; N10 Acute pyelonephritis; N17.9 Acute kidney failure, unspecified; Z68.42 Body mass index [BMI] 45.0-49.9, adult; N13.2 Hydronephrosis with renal and ureteral calculous obstruction; D69.6 Thrombocytopenia, unspecified; E11.65 Type 2 diabetes mellitus with hyperglycemia; E66.01 Morbid (severe) obesity due to excess calories; E87.6 Hypokalemia; I10 Essential (primary) hypertension; N16 Renal tubulo-interstitial disorders in diseases classified elsewhere; Z90.49 Acquired absence of other specified parts of digestive tract; B96.1 Klebsiella pneumoniae [K. pneumoniae] as the cause of diseases classified elsewhere
CPT/HCPCS: 36415; 74176; 76000; 80048; 80053; 81001; 82962; 85025; 87077; 87086; 87088; 87186; 87428; 99285; J7030; J7050; J7120; A4216; C1769; C2617; J2405

== ENCOUNTER 2025-02-03 19:33 | Emergency (ER) | payer OTHER, SELFPAY ==
[2025-02-03] VITALS (7 sets, daily range): BP systolic 117–145; BP diastolic 66–99; PULSE 105–120; RESP 16–28; TEMP 37.5–38.6; O2SAT 94–100; BMI 50.0
--- NOTE | 2025-02-03 19:38 | CT_ITS ---
PROCEDURE: SPINE CERVICAL WITHOUT CONTRAS 02/03/2025 REASON FOR EXAM: 54-year-old male, TRAUMA, fall down the stairs. TECHNIQUE: Cervical spine CT without contrast. Coronal and Sagittal reconstruction series were provided. One or more dose reduction techniques were used (e.g., Automated exposure control, adjustment of the mA and/or kV according to patient size, use of iterative reconstruction technique RADIATION DOSE SUMMARY: CTDlvol: 30 mGy DLP: 900 mGycm COMPARISON: None. FINDINGS: Visualization is limited by motion artifact. Alignment: There is straightening of the normal cervical lordosis. No traumatic listhesis. Vertebrae: The vertebral body heights are maintained. No acute fracture. Soft Tissues: No obvious prevertebral or subcutaneous hematoma. Other: Partially visualized large volume intraventricular hemorrhage. See same day CT head for further discussion. CT/Spine Cervical without Contras IMPRESSION: NO ACUTE CERVICAL FRACTURE. Reading Location: [id number]
--- NOTE | 2025-02-03 19:38 | CT_ITS ---
EXAM: BRAIN/HEAD WITHOUT CONTRAST CLINICAL HISTORY: 54 y/o M with MENTAL STATUS CHANGE. COMPARISON: None. TECHNIQUE: Routine CT imaging of the head without IV contrast. Additional multiplanar reformats were obtained. Dose reduction techniques were used including intermediate exposure control (AEC),iterative reconstruction technique, and/or mA and/or KV dose adjustments based on patient's size. FINDINGS: Large volume intraventricular hemorrhage throughout the lateral ventricles extending into the occipital and temporal horns, [id number]-right. Moderate volume hemorrhage within the 3rd and 4th ventricles. There is dilation of the left ventricular system. No midline shift or herniation. There is mild diffuse blurring of the palacios-white matter interfaces. The orbits, visualized paranasal sinuses and mastoids are unremarkable. No acute calvarial fracture or scalp hematoma. CT/Brain/Head without Contrast IMPRESSION: 1. Acute intraventricular hemorrhage throughout the ventricular system, left-gr oxmkh-nnoa-dnvan, with dilation of the left ventricular system, compatible with obstructive hydrocephalus. 2. Mild diffuse blurring of the palacios-white matter interfaces, which may be seco ndary to imaging technique or developing anoxic brain injury. 3. No midline shift or herniation. Dr. Reed discussed these findings with Dr. Merchant via telephone at 8:40 p. m. on 02/03/2025. Reading Location: [id number]
--- NOTE | 2025-02-03 19:38 | EKG12_ITS ---
Test Reason : DYSRHYTHMIA Blood Pressure : */* mmHG Vent. Rate : 103 BPM Atrial Rate : 103 BPM P-R Int : 232 ms QRS Dur : 104 ms QT Int : 336 ms P-R-T Axes : 57 53 15 degrees QTcB Int : 440 ms Sinus tachycardia with 1st degree A-V block with occasional Premature ventricular complexes Otherwise normal ECG Confirmed by Sonny Cohn ([id number]), editor map SHEN KING ([id number]) on 02/04/2025 7:51:23 AM Referred By: Confirmed By: Sonny Cohn
--- NOTE | 2025-02-03 19:40 | CT_ITS ---
PROCEDURE: CT CHEST, ABD, PEL W/CONTRAST 02/03/2025 REASON FOR EXAM: UNRESPONSIVE TECHNIQUE: Chest, abdomen and pelvis CT with intravenous contrast. Coronal and Sagittal reconstruction series were provided. One or more dose reduction techniques were used (e.g., Automated exposure control, adjustment of the mA and/or kV according to patient size, use of iterative reconstruction technique. PATIENT PREPARATION: Per protocol ORAL CONTRAST TYPE: None. AMOUNT: mL CONTRAST: Isovue 370 VOLUME: 96mL Gauge IV RADIATION DOSE SUMMARY: DLP: 4483 MGycm COMPARISON: CT of the abdomen and pelvis dated 10/23/2022 FINDINGS: CT CHEST: Hardware: None Lymph nodes: No lymphadenopathy. Heart and Vasculature: Heart size is normal. No coronary artery calcifications. Lungs and Airways: Right basilar dependent atelectasis. No focal consolidation. Pleura: No pleural effusion or pneumothorax. Bones: Degenerative changes of the thoracic spine. Status post left shoulder arthroplasty. CT ABDOMEN/PELVIS: Liver: Normal size. No mass. Gallbladder: Surgically absent. Spleen: Normal size. Pancreas: Normal size without evidence of mass surrounding inflammation or ductal dilation. Adrenals: Unremarkable Kidneys: Normal renal sizes. No hydronephrosis. Bladder: Unremarkable Reproductive Organs: Coarse calcification of the prostate gland. Bowel: Evaluation of the bowel loops are limited due to lack of oral contrast. In addition the evaluation of the bowel loops are limited due to motion. Stomach appears grossly unremarkable. No inflammatory changes of the small or large bowel. Mild stool burden within the right colon. No inflammatory changes of the large bowel. Appendix: Unremarkable Lymph nodes: Unremarkable Vasculature: The abdominal aorta and IVC are normal. Peritoneum / Retroperitoneum: No evidence of free air or free fluid. Bones: Status post right hip arthroplasty. CT/CT Chest, Abd, Pel w/Contrast IMPRESSION: No acute abnormality is demonstrated. Please see of the nonacute findings as described above. Reading Location: [facility]
[2025-02-03 19:51] LABS: Allen Test Positive; Base Excess -3 mmol/L (-2 to +2); Bicarbonate 22.2 mmol/L (22-26); Blood Gas Specimen Type ART; Mode Not entered; O2 Delivery Device Room Air; PO2 75 mmHG (75-100); SITE R Radial; SO2 95 % (95-99); Total Carbon Dioxide 23 mmol/L; pCO2 36.6 mmHg (35-45); pH 7.39 (7.35-7.45)
[2025-02-03 19:59] LABS: Absolute Neutrophil Count 14.7 X10^3/uL (2.0-7.7); Basophil# 0.06 X10^3/uL; Basophil% 0.4 % (0-1); Hematocrit 45.8 % (40-54); Hemoglobin 16.2 g/dL (13.0-16.5); Lymphocyte % 4.8 % (19-41); Mean Corp Hgb Conc 35.4 g/dL (32-36); Mean Corpuscular Hgb 30.5 pg (27.0-32.0); Mean Corpuscular Volume 86.1 fL (80-94); Mean Platelet Vol. 10.4 fl (6.2-12.0); Monocyte# 0.87 X10^3/uL; Monocyte% 5.3 % (0-10); NRBC Flagged by Analyzer 0 % (0-5); Neutrophil # 14.68 X10^3/uL (2.7-7.7); Platelet Count 234 K/mm3 (150-450); RBC Distribution Width CV 12.6 % (11.6-14.6); RBC Distribution Width SD 38.9 fl (35.1-43.9); Red Blood Count 5.32 M/mm3 (4.6-6.2); White Blood Count 16.5 K/mm3 (4.4-11.0)
[2025-02-03 20:23] LABS: Glucose, Dipstick 50 mg/dl (Normal); Ketone-Dipstick 15 mg/dl (Negative); Leukocyte Esterase-Dipstick 25 /ul (Negative); Nitrite-Dipstick Negative (Negative); Occult Blood-Urine 150 /ul (Negative); Protein-Dipstick 30 mg/dl (Negative); Specific Gravity, Urine 1.025 (1.002-1.030); Urine Bilirubin Dipstick Negative (Negative); Urine Clarity Clear (Clear); Urine Urobilinogen Normal (Normal)
[2025-02-03] MEDS: Etomidate 20 MG/10 ML Vial IV (20:23)
[2025-02-03] MEDS: Succinylcholine Chloride 200 MG/10 ML Vial 120 MG IV (20:24)
[2025-02-03 20:30] LABS: ALB/GLOB Ratio 1.5 RATIO (0.9-2.4); AST(SGOT) 47 U/L (<=37); Alanine Aminotransfer ALT/SGPT 60 U/L (<=46); Albumin, Serum 4.5 g/dL (3.5-5.0); Alkaline Phosphatase 110 U/L (40-129); Anion Gap 17 (5-15); BUN 13 mg/dL (4-19); BUN/Creat Ratio 14.1 RATIO (10-20); Calcium,Total 9.4 mg/dL (7.6-11.0); Carbon Dioxide 22.2 mmol/L (21.0-32.0); Chloride 98 mmol/L (98-108); Creatinine, Serum 0.93 mg/dL (0.70-1.20); EST Glomerular Filtration Rate 99 (>60); Estimated Creatinine Clearance 136.49 ml/min (50-250); Glucose 169 mg/dL (70-99); Potassium 4.2 mmol/L (3.3-5.1); Protein, Total 7.4 g/dL (5.9-8.4); Sodium Level 137 mmol/L (133-145); Total Bilirubin 0.43 mg/dL (0.00-1.30); Troponin T High Sensitivity 14 ng/L (<=22)
[2025-02-03] MEDS: fentaNYL 100 MCG/2 ML Ampul 50 MCG IV (20:32)
[2025-02-03 20:35] LABS: Alcohol, Blood (Medical)-Serum < 10.1 mg/dL (<=10.0)
[2025-02-03] MEDS: Propofol 10MG/Ml 1,000 MG/100 ML Bottle 9.2 MG CONT INF (20:42)
--- NOTE | 2025-02-03 20:49 | RAD_ITS ---
PROCEDURE: CHEST 1 VIEW (PORTABLE) 02/03/2025 REASON FOR EXAM: ET TUBE PLACEMENT AND OG PLACEMENT TECHNIQUE: Frontal view of the chest. COMPARISON: None FINDINGS: Hardware: The distal tip of the endotracheal tube is 4.6 cm above the tawana. Nasogastric tube terminates within the stomach. Heart: Heart size is mildly enlarged. Lungs: Patchy bibasilar atelectasis. No focal consolidation. No pneumothorax. Bones: Left shoulder arthroplasty. Other: RAD/Chest 1 View (Portable) IMPRESSION: The endotracheal and nasogastric tube are in satisfactory position. Reading Location: [facility]
[2025-02-03 21:08] LABS: Bacteria 1+ /hpf (None Seen); Color, Urine Yellow (Yellow); Hyaline Cast 0-5 SEEN /lpf (0-5); Mucous, Urine 1+ /hpf (<or=2+); Red Blood Cells-Urine 5-10 SEEN /hpf (0-5); Squamous Epithelial Cells - UA 0-5 SEEN /hpf (0-5); Transitional Epithelial - Ur 0-5 SEEN /hpf (0-5); White Blood Cells 10-25 SEEN /hpf (0-5)
--- NOTE | 2025-02-03 21:10 | EDS_ITS ---
HPI History of Present Illness Chief Complaint: Unresponsive Narrative Narrative: 54-year-old male past medical history of diabetes, hypertension, presents via EMS with snoring respirations and decreased mental status. History and physical is limited secondary to patient condition. Per EMS, patient was found at the bottom of the stairs to the basement by his unresponsive. She is unsure as to how long he had been down. He also may have fallen down the stairs. His states that he had been in the basement working out for a few hours. She went to go check on him, and found him at the bottom of the stairs, unresponsive. She states he does not take blood thinners. She states the treadmill was off as well and that he may have been done working out. EMS states that his vital signs have been within normal limits, and that he intermittently would wake up and open his eyes. PFSH PFS Medical History Non-smoker Diabetes Hypertension Home Medications ?Medication ?Instructions ?Recorded ?Last Taken ?Type dulaglutide 0.75 mg/0.5 mL 0.75 mg subcut TU DIABETES 10/22/22 Unknown History subcutaneous pen injector (Trulicity) losartan 100 mg tablet 100 mg PO DAILY 10/22/22 Unk nown History metformin 500 mg tablet 1,000 mg PO BID 10/22/22 Unk nown History ondansetron 4 mg disintegrating 4 mg PO Q8H PRN nausea and 10/23/22 Unknown Rx tablet vomiting #14 tabs oxycodone-acetaminophen 5 mg-325 1 tab PO Q6H PRN pain 3 days #12 10/23/22 Unknown Rx mg tablet (Percocet) tabs sulfamethoxazole 800 1 tab PO BID #24 tabs Unknown Rx mg-trimethoprim 160 mg tablet (Bactrim DS) cefdinir 300 mg capsule 300 mg PO BID 5 days #10 cap s 10/25/22 Unknown Rx Allergy/AdvReac Type Severity Reaction Status Date / Time No Known Allergies Allergy Verified 02/03/25 19:36 Family History Other Diabetes Hypertension Surgical History Hx of shoulder surgery History of hip replacement History of cholecystectomy Social History Smoking Status: Current some day smoker tobacco type: smokeless tobacco Smokeless tobacco user: chewing tobacco ROS ROS ED ROS Narrative Unable to obtain from patient secondary to current mental status. EXAM Physical Exam Narrative Exam Narrative: GCS approximately 8, not posturing. Intermittently open his eyes with transfer to cot. Cardiovascular examination reveals mild tachycardia. Lungs clear to auscultation bilaterally. Abdomen soft, without rigidity, positive bowel sounds. Positive abrasions right knee, no obvious deformity. Bilateral dorsalis pedis pulses, equal and symmetric. Const Vital Signs: 02/03/25 19:34 02/03/25 19:38 02/03/25 20:07 Temperature 99.5 F H Temperature Source Axillary Pulse Rate 105 H 107 H Respiratory Rate 19 H 28 H Respiratory Effort Short of Breath Labored Accessory Muscle Use Respiratory Depth Respiratory Pattern Tachypnea Blood Pressure 145/99 H 126/72 H Blood Pressure Mean 114 90 Pulse Ox 96 99 Oxygen Delivery Method Room Air Room Air Fraction of Inspired Oxygen (FIO2) 02/03/25 20:26 02/03/25 20:41 02/03/25 20:44 Temperature Temperature Source Pulse Rate 119 H Respiratory Rate 23 H Respiratory Effort Labored Accessory Muscle Use Respiratory Depth Deep Respiratory Pattern Tachypnea Blood Pressure Blood Pressure Mean Pulse Ox 100 99 Oxygen Delivery Method Mechanical Ventilator Mechanical Ventilator Fraction of Inspired Oxygen (FIO2) 100 02/03/25 20:44 02/03/25 21:00 02/03/25 21:15 Temperature 101.3 F H Temperature Source Core Pulse Rate 120 H 110 H 108 H Respiratory Rate 24 H 25 H 24 H Respiratory Effort Respiratory Depth Respiratory Pattern Blood Pressure 138/66 H 117/76 Blood Pressure Mean 90 89 Pulse Ox 98 98 94 Oxygen Delivery Method Mechanical Ventilator Mechanical Ventilator Mechanical Ventilator Fraction of Inspired Oxygen (FIO2) 60 60 60 02/03/25 21:56 Temperature 101.4 F H Temperature Source Pulse Rate 108 H Respiratory Rate 24 H Respiratory Effort Respiratory Depth Respiratory Pattern Blood Pressure 134/66 H Blood Pressure Mean 88 Pulse Ox 99 Oxygen Delivery Method Fraction of Inspired Oxygen (FIO2) MDM MDM MDM Narrative Medical decision making narrative: Differential diagnosis includes but not limited to stroke versus intracranial hemorrhage versus electrolyte imbalance versus hypoglycemia. Patient had normal blood sugar for EMS and here. With concern for intracranial hemorrhage, with the possibility of it being traumatic, CT of the brain and cervical spine was obtained as well as CT of the chest, abdomen, and pelvis. EKG was obtained and interpreted by myself independently as sinus tachycardia at 103 bpm with PVCs but no acute ST changes. No STEMI. MT would also be in the differential as well. I reviewed his laboratory work and he had a white count of 16.5 which I think is nonspecific, hemoglobin 16.2, hematocrit 45.8, platelet count normal at 234. Sodium is normal at 137 with potassium 4.2, BUN of 13 and creatinine 0.93. AST is slightly elevated at 47 and ALT is of 60 which I think is nonspecific. High-sensitivity troponin initially 14. On my independent review of the CT of the brain, there is an intraventricular hemorrhage left greater than right. I received a call from the radiologist as well. There is no acute fracture of the cervical spine according to the radiologist and I reviewed the radiology report as well. Additionally, she had stated that there is nothing acute in the CT of the chest, abdomen and pelvis. I also reviewed the radiology report on this as well. Chest x-ray postintubation shows no evidence of pneumonia with the ET tube to be satisfactorily in place according to my independent interpretation. I reviewed the radiology report which confirms my independent interpretation. Given the intraventricular hemorrhage, I discussed the patient with the [facility] transfer line. As he was found at the bottom of the stairs and a fall is uncertain and that this may be more of a traumatic intracranial hemorrhage, I discussed patient with Dr. Mc who has accepted him in transfer. Given his decreased mental status, it was thought best that he should be intubated for airway protection as he is only intermittently responsive. He is not currently posturing but he does have sonorous respirations. Rapid sequence intubation was used with 20 mg of etomidate and 120 mg of succinylcholine used. 8.0 ET tube was placed using video laryngoscopy. There was good color change on capnometry. Visualization of passage of the tube through the cords was seen by myself and reconfirmed. Patient was placed on the ventilator afterwards. He was transferred via [facility] by helicopter as an ED to ED to transfer to the [facility] as. Patient is in critical condition. Disposition is transferred. Critical care time 31 minutes History & Record Review Discussion w/independent historian: EMS personnel and Family () Lab Data Attestation: I reviewed the patient's lab results. Labs: Laboratory Results - last 24 hr 02/03/25 02/03/25 02/03/25 19:43 20:13 21:33 WBC 16.5 H RBC 5.32 Hgb 16.2 Hct 45.8 MCV 86.1 MCH 30.5 MCHC 35.4 RDW Std Deviation 38.9 RDW Coeff of Brandy 12.6 Plt Count 234 MPV 10.4 Immature Gran % (Auto) 0.500 Neut % (Auto) 89.0 H Lymph % (Auto) 4.[address] % (Auto) 5.3 Eos % (Auto) 0.0 Baso % (Auto) 0.4 Absolute Neuts (auto) 14.7 H Absolute Lymphs (auto) 0.80 L Nucleated RBC % 0 Sodium 137 Potassium 4.2 Chloride 98 Carbon Dioxide 22.2 Anion Gap 17 H BUN 13 Creatinine 0.93 Estim Creat Clear Calc 136.49 Est GFR (MDRD) Non-Af 99 BUN/Creatinine Ratio 14.1 Glucose 169 H Calcium 9.4 Total Bilirubin 0.43 AST 47 H ALT 60 H Alkaline Phosphatase 110 Ammonia 13.0 L Total Creatine Kinase 1003 H Troponin T High Sens 14 Total Protein 7.4 Albumin 4.5 Globulin 3.0 Albumin/Globulin Ratio 1.5 Triglycerides 76 Urine Color Yellow Urine Clarity Clear Urine pH 6.0 Ur Specific [place] 1.025 Urine Protein 30 H Urine Glucose (UA) 50 H Urine Ketones 15 H Urine Occult Blood 150 H Urine Nitrite Negative Urine Bilirubin Negative Urine Urobilinogen Normal Ur Leukocyte Esterase 25 H Urine RBC 5-10 SEEN Urine WBC 10-25 SEEN Ur Squamous Epith Cells 0-5 SEEN Ur Transition Epith Cell 0-5 SEEN Urine Bacteria 1+ Hyaline Casts 0-5 SEEN Urine Mucus 1+ Ethyl Alcohol < 10.1 POC Glucose 155 H ABG Data ABG results: ABG 02/03/25 19:48 Specimen Type ART Sample Site R Radial pH 7.39 Bicarbonate Actual 22.2 Total CO2 23 Base Excess -3 L O2 Saturation 95 ABG pCO2 36.6 ABG pO2 75 Edmund Test Positive O2 Delivery Device Room Air Vent Mode Not entered Radiography Chest X-Ray - ED: 1 View, Read by ED Physician, Read by Radiologist and - (ET tube in satisfactory position) Diagnostic Testing: Clinical Impression(s) from Imaging Studies Brain CT 02/03/25 19:38 IMPRESSION: 1. Acute intraventricular hemorrhage throughout the ventricular system, [id number], with dilation of the left ventricular system, compatible with obstructive hydrocephalus. 2. Mild diffuse blurring of the palacios-white matter interfaces, which may be secondary to imaging technique or developing anoxic brain injury. 3. No midline shift or herniation. Dr. Reed discussed these findings with Dr. Merchant via telephone at 8:40 p.m. on 02/03/2025. Reading Location: [facility] Cervical Spine CT 02/03/25 19:38 IMPRESSION: NO ACUTE CERVICAL FRACTURE. Reading Location: [facility] Chest/Abdomen/Pelvis CT 02/03/25 19:40 IMPRESSION: No acute abnormality is demonstrated. Please see of the nonacute findings as described above. Reading Location: [facility] Chest X-Ray 02/03/25 20:49 IMPRESSION: The endotracheal and nasogastric tube are in satisfactory position. Reading Location: [facility] Management Discussion w/another healthcare provider: Middleware Consultant (Dr. Mc, U trauma surgeon) and Radiologist Critical Care Time Critical Care Time: Yes Critical care time (excluding procedures): 30-74 minutes (31), Including time spent:, Discussing w/Patient &/or Family/Growth Hacker, Discussing w/Consultants, Arranging Admission or Transfer and Performing Direct Patient Care at Bedside Discharge Plan Triage Chief Complaint: Unresponsive ED Provider: Samuel Merchant Dx/Rx/DC Orders Clinical Impression: Intracranial hemorrhage, Unresponsive, Altered mental status, Respiratory failure after trauma Prescriptions: No Action metformin 500 mg tablet 1,000 mg PO BID losartan 100 mg tablet 100 mg PO DAILY Patient Comments: TAKE 1 TABLET BY MOUTH EVERY DAY Trulicity 0.75 mg/0.5 mL pen injector 0.75 mg SUBCUT TU oxycodone-acetaminophen [Percocet] 5-325 mg tablet 1 tab PO Q6H PRN (Reason: pain) 3 Days Qty: 12 0RF ondansetron 4 mg tablet,disintegrating 4 mg PO Q8H PRN (Reason: nausea and vomiting) Qty: 14 0RF sulfamethoxazole-trimethoprim [Bactrim DS] 800-160 mg tablet 1 tab PO BID Qty: 24 0RF cefdinir 300 mg capsule 300 mg PO BID 5 Days Qty: 10 0RF Primary Care Provider: Harinder Gomes Referrals: Harinder Gomes MD [Primary Care Provider] - Print Language: Divehi Disposition Disposition: Acute Care Hospital Discharge Location: [facility] [place] Discharge Date/Time: 02/03/25 21:49
--- NOTE | 2025-02-03 21:20 | PCA ---
PT WAS ACCEPTED [facility] ED, AND [facility] WAS CALLED.
[2025-02-03 21:30] LABS: CPK Total, Creatine Kinase 1003 U/L (24-195); Triglycerides 76 mg/dL
--- NOTE | 2025-02-03 21:30 | ED.RN ---
[facility] in patient's room, care transferred to [employer] at this time.
--- NOTE | 2025-02-03 21:37 | CM.ED ---
Social Work SW introduced self to patients and explained role with [facility]. stated that patient had been in the basement working out, when she went downstairs to check on him, she noted him on the ground. called 911. was tearful throughout discussion, stating she wasnt sure when she should call her kids and what to tell them. Emotional support provided. No further needs identified at this time. Julia Pop, EXPLOSIVE OPERATOR, [employer]
[2025-02-03 22:08] LABS: Bedside Glucose 155 mg/dL (74-106)
== END 2025-02-03 21:49 | disposition short-term general hospital (02) ==
PROVIDERS: Emergency Provider Emergency Medicine; PCP Family Medicine; Visit Provider Emergency Medicine
DX: I62.9 Nontraumatic intracranial hemorrhage, unspecified (principal); J96.90 Respiratory failure, unspecified, unspecified whether with hypoxia or hypercapnia; E11.9 Type 2 diabetes mellitus without complications; R41.82 Altered mental status, unspecified; F17.220 Nicotine dependence, chewing tobacco, uncomplicated
CPT/HCPCS: 31500; 31720; 36600; 51702; 70450; 71045; 71260; 72125; 74177; 80053; 81001; 82077; 82140; 82550; 82803; 82962; 84478; 84484; 85025; 87070; 87205; 87631; 93005; 94002; 96374; 96375; 96376; 99252; 99285; A4216; G0463; J0330